=== PATIENT | male | born 1955 | race Caucasian/White ===

== ENCOUNTER → 2017-03-01 | Outpatient (CLI) | payer BC ==
[2017-03-01 12:10] LABS: BUN/CREATININE RATIO 18 (0-10)
== END ==
LOC: LAB 10:53
PROVIDERS: Internal Medicine
DX: E11.9 Type 2 diabetes mellitus without complications (principal); E55.9 Vitamin D deficiency, unspecified; E78.5 Hyperlipidemia, unspecified; I10 Essential (primary) hypertension
CPT/HCPCS: 36415; 80048; 80061; 80076; 82607; 83036; 84443; G0103

== ENCOUNTER 2020-11-29 16:01 | Emergency (ER) | payer BC, OTHER ==
[~2020-11-29 16:01] MED LIST: CLARITIN10 MG PO; ECOTRIN81 MG PO; ELIQUIS 5 MG TAB5 MG PO; ELIQUIS5 MG PO; GLUCOTROL XL 22.5 MG PO; JARDIANCE25 MG PO; LEVAQUIN750 MG PO; LIPITOR TAB 1010 MG PO; LOPRESSOR 25 MG25 MG PO; MULTAQ400 MG PO; NORVASC 5 MG TAB5 MG PO; PRINIVIL10 MG PO; PROTONIX40 MG PO; RANITIDINE HCL300 MG PO; TRULICITY1.5 MG/0.5 SQ; TYLENOL WITH C1 EACH PO
[2020-11-29 19:43] LABS: HEMOGLOBIN 15.5 gm/dl (14.0-17.5); RED BLOOD COUNT 5.55 M/UL (4.20-5.50); WHITE BLOOD COUNT 4.1 K/UL (4.5-11.0)
[2020-11-29] MEDS ORDERED: VENTOLIN HFA 66.7 GM INH (21:30)
[2020-11-29] MEDS ORDERED: NASONEX SPRAY 117 GM (21:30)
== END 2020-11-29 21:45 | disposition home or self-care (01) ==
LOC: ER1 16:01
PROVIDERS: Physician Assistant
DX: U07.1 COVID-19 (principal); E11.9 Type 2 diabetes mellitus without complications; I10 Essential (primary) hypertension; Z95.0 Presence of cardiac pacemaker; Z79.01 Long term (current) use of anticoagulants
CPT/HCPCS: 71045; 80053; 85025; 93005; 99285; M0239

== ENCOUNTER 2021-03-29 14:33 | Emergency (ER) | payer BC, OTHER ==
[~2021-03-29 14:33] MED LIST changes: +NASONEX SPRAY 117 GM; +VENTOLIN HFA 66.7 GM INH
[2021-03-29 15:14] LABS: HEMOGLOBIN 16.3 gm/dl (14.0-17.5); RED BLOOD COUNT 5.81 M/UL (4.20-5.50); WHITE BLOOD COUNT 8.7 K/UL (4.5-11.0)
[2021-03-29 16:13] LABS: BUN/CREATININE RATIO 14 (0-10)
== END 2021-03-29 21:45 | disposition short-term general hospital (02) ==
LOC: ER1 14:33
PROVIDERS: Emergency Medicine
DX: K85.91 Acute pancreatitis with uninfected necrosis, unspecified (principal); R07.9 Chest pain, unspecified; R79.89 Other specified abnormal findings of blood chemistry; I48.91 Unspecified atrial fibrillation; I11.0 Hypertensive heart disease with heart failure; I50.9 Heart failure, unspecified; E11.9 Type 2 diabetes mellitus without complications; E78.5 Hyperlipidemia, unspecified; Z20.822 Contact with and (suspected) exposure to COVID-19; Z86.79 Personal history of other diseases of the circulatory system
CPT/HCPCS: 71045; 71260; 80053; 80061; 82550; 82553; 83605; 83690; 83874; 84484; 85025; 87040; 93005; 96374; 96375; 96376; 99285; C9113; J2270; J2405; J2543; Q9967; U0002

== ENCOUNTER 2021-04-05 08:59 | Emergency (ER) | payer BC, OTHER ==
[2021-04-05 10:00] LABS: RED BLOOD COUNT 4.92 M/UL (4.20-5.50); WHITE BLOOD COUNT 9.1 K/UL (4.5-11.0)
[2021-04-05 10:04] LABS: HEMOGLOBIN 13.9 gm/dl (14.0-17.5)
[2021-04-05 10:21] LABS: BUN/CREATININE RATIO 19 (0-10)
[2021-04-05] MEDS ORDERED: LASIX20 MG PO (11:34)
[2021-04-05] MEDS ORDERED: K-DUR TAB 20 M20 MEQ PO (11:52)
== END 2021-04-05 11:57 | disposition home or self-care (01) ==
LOC: ER1 08:59
PROVIDERS: Physician Assistant
DX: I50.9 Heart failure, unspecified (principal); I48.20 Chronic atrial fibrillation, unspecified; K85.90 Acute pancreatitis without necrosis or infection, unspecified; E11.9 Type 2 diabetes mellitus without complications; Z86.16 Personal history of COVID-19; Z79.01 Long term (current) use of anticoagulants; Z20.822 Contact with and (suspected) exposure to COVID-19
CPT/HCPCS: 0240U; 71045; 80053; 82550; 82553; 83874; 83880; 84484; 85025; 93005; 96374; 99285; J1940

== ENCOUNTER 2021-10-21 16:51 | Inpatient (IN) | payer BC, OTHER ==
[~2021-10-21] VITALS: Ht 182.9 cm; Wt 99.3 kg
[~2021-10-21 16:51] MED LIST changes: +K-DUR TAB 20 M20 MEQ PO; +LASIX20 MG PO
[2021-10-21 18:37] LABS: HEMOGLOBIN 15.8 gm/dl (14.0-17.5); RED BLOOD COUNT 5.57 M/UL (4.20-5.50)
[2021-10-21 19:03] LABS: BUN/CREATININE RATIO 21 (0-10)
[2021-10-21] MEDS ORDERED: ELIQUIS5 MG PO (22:19)
[2021-10-21] MEDS ORDERED: RABEPRAZOLE SOD20 MG PO (22:19)
[2021-10-21] MEDS ORDERED: GLIPIZIDE5 MG PO (22:20)
[2021-10-21] MEDS ORDERED: JARDIANCE25 MG PO (22:20)
[2021-10-21] MEDS ORDERED: GLIPIZIDE10 MG PO (22:20)
[2021-10-21] MEDS ORDERED: MULTAQ 400 MG400 MG PO (22:21)
[2021-10-21] MEDS ORDERED: NORVASC5 MG PO (22:21)
[2021-10-21] MEDS ORDERED: LISINOPRIL10 MG PO (22:22)
[2021-10-21] MEDS ORDERED: CLARITIN10 MG PO (22:22)
[2021-10-21] MEDS ORDERED: FAMOTIDINE20 MG PO (22:22)
[2021-10-21] MEDS ORDERED: URSODIOL300 MG PO (22:23)
[2021-10-22 10:13] LABS: HEMOGLOBIN 16.5 gm/dl (14.0-17.5); RED BLOOD COUNT 5.86 M/UL (4.20-5.50); WHITE BLOOD COUNT 15.4 K/UL (4.5-11.0)
[2021-10-22 10:42] LABS: BUN/CREATININE RATIO 22 (0-10)
[2021-10-23 04:57] LABS: HEMOGLOBIN 14.9 gm/dl (14.0-17.5); RED BLOOD COUNT 5.31 M/UL (4.20-5.50); WHITE BLOOD COUNT 17.1 K/UL (4.5-11.0)
[2021-10-23 05:19] LABS: BUN/CREATININE RATIO 21 (0-10)
--- NOTE | 2021-10-23 09:56 | NUR ---
SPOKE WITH DR. EWING. STATED PATIENT COULD BE DISCHARGED LOND HE IS ABLE TO TOLERATE PO FLAGYL 500 MG THIS AM. ALSO ORDERED RN TO STOP IV FLUIDS.
[2021-10-23] MEDS ORDERED: METRONIDAZOLE500 MG PO (10:01)
--- NOTE | 2021-10-23 12:10 | NUR ---
PATIENT NOTED TO BE TOLERATING LUNCH WELL. DENIES PAIN AND DISCOMFORT. REQUESTS TO FOLLOW THROUGH WITH DISCHARGE PER DR. EWING RN VERBALIZED UNDERSTANDING.
[2021-10-24] MEDS ORDERED: NORFLEX 100 MG100 MG PO (10:14)
[2021-10-24] MEDS ORDERED: ASPIRIN EC81 MG PO (22:19)
[2021-10-24] MEDS ORDERED: LIPITOR10 MG PO (22:20)
== END 2021-10-23 12:40 | disposition home or self-care (01) | DRG 444 ==
LOC: ER1 16:51 → CDU 20:29 → MED SURG 4 20:29
PROVIDERS: Physician Assistant; ADMIT Internal Medicine
DX: K80.00 Calculus of gallbladder with acute cholecystitis without obstruction (principal); K85.10 Biliary acute pancreatitis without necrosis or infection; E11.9 Type 2 diabetes mellitus without complications; Z20.822 Contact with and (suspected) exposure to COVID-19; E86.0 Dehydration; N28.9 Disorder of kidney and ureter, unspecified; I25.10 Atherosclerotic heart disease of native coronary artery without angina pectoris; I48.91 Unspecified atrial fibrillation; I49.5 Sick sinus syndrome; Z79.01 Long term (current) use of anticoagulants; Z95.1 Presence of aortocoronary bypass graft; Z95.5 Presence of coronary angioplasty implant and graft; Z88.8 Allergy status to other drugs, medicaments and biological substances; Z79.82 Long term (current) use of aspirin; Z95.0 Presence of cardiac pacemaker; Z95.2 Presence of prosthetic heart valve; Z82.49 Family history of ischemic heart disease and other diseases of the circulatory system; Z79.4 Long term (current) use of insulin
CPT/HCPCS: 36415; 71045; 80048; 80053; 82150; 82247; 82248; 82550; 82553; 82962; 83690; 83874; 84484; 85025; 85379; 93005; 96374; 99285; C9113; G0378; J1335; J1885; Q9967; U0002

== ENCOUNTER 2021-10-23 18:45 | Inpatient (IN) | payer BC, OTHER ==
[~2021-10-23] VITALS: Ht 182.9 cm; Wt 99.3 kg
[~2021-10-23 18:45] MED LIST changes: +FAMOTIDINE20 MG PO; +GLIPIZIDE10 MG PO; +GLIPIZIDE5 MG PO; +LISINOPRIL10 MG PO; +METRONIDAZOLE500 MG PO; +MULTAQ 400 MG400 MG PO; +NORVASC5 MG PO; +RABEPRAZOLE SOD20 MG PO; +URSODIOL300 MG PO
[2021-10-23 19:30] LABS: HEMOGLOBIN 15.3 gm/dl (14.0-17.5); RED BLOOD COUNT 5.4 M/UL (4.20-5.50)
[2021-10-23 19:32] LABS: WHITE BLOOD COUNT 10.4 K/UL (4.5-11.0)
[2021-10-23 19:51] LABS: BUN/CREATININE RATIO 20 (0-10)
[2021-10-24 05:11] LABS: HEMOGLOBIN 13.8 gm/dl (14.0-17.5); RED BLOOD COUNT 5.14 M/UL (4.20-5.50); WHITE BLOOD COUNT 8.9 K/UL (4.5-11.0)
[2021-10-24 05:32] LABS: BUN/CREATININE RATIO 21 (0-10)
[2021-10-24] MEDS ORDERED: NORFLEX 100 MG100 MG PO (10:14)
[2021-10-24] MEDS ORDERED: ASPIRIN EC81 MG PO (22:19)
[2021-10-24] MEDS ORDERED: LIPITOR10 MG PO (22:20)
[2021-10-25 03:31] LABS: HEMOGLOBIN 13.2 gm/dl (14.0-17.5); RED BLOOD COUNT 4.67 M/UL (4.20-5.50)
[2021-10-25 03:47] LABS: WHITE BLOOD COUNT 12.2 K/UL (4.5-11.0)
[2021-10-25] MEDS ORDERED: ROXICODONE TAB 55 MG PO (08:47)
[2021-10-26 04:19] LABS: HEMOGLOBIN 11.6 gm/dl (14.0-17.5)
[2021-10-26 04:22] LABS: RED BLOOD COUNT 4.19 M/UL (4.20-5.50); WHITE BLOOD COUNT 8.8 K/UL (4.5-11.0)
[2021-10-26 05:10] LABS: BUN/CREATININE RATIO 27 (0-10)
[2021-10-27 04:16] LABS: HEMOGLOBIN 11.2 gm/dl (14.0-17.5); RED BLOOD COUNT 4.04 M/UL (4.20-5.50); WHITE BLOOD COUNT 7.5 K/UL (4.5-11.0)
[2021-10-27 04:35] LABS: BUN/CREATININE RATIO 28 (0-10)
--- NOTE | 2021-10-27 20:05 | NUR ---
PTS CONCERNED OF PTS BILATERAL FEET SWELLING. NOTIFIED DR VEGA. ELSY PHILLIPS APPLIED.
[2021-10-29 03:16] LABS: HEMOGLOBIN 11.6 gm/dl (14.0-17.5); RED BLOOD COUNT 4.22 M/UL (4.20-5.50); WHITE BLOOD COUNT 6.6 K/UL (4.5-11.0)
[2021-10-29 03:35] LABS: BUN/CREATININE RATIO 19 (0-10)
== END 2021-10-29 10:19 | disposition home or self-care (01) | DRG 854 ==
LOC: ER1 18:45 → CDU 22:45 → PROG CARE 22:45 → CCU 22:45 → PROG CARE 10-24 16:08
PROVIDERS: Internal Medicine; Physician Assistant; ADMIT Internal Medicine
PROC: 0FT44ZZ Resection of Gallbladder, Percutaneous Endoscopic Approach (ICD-10-PCS; principal; 2021-10-25)
DX: A41.9 Sepsis, unspecified organism (principal); K80.00 Calculus of gallbladder with acute cholecystitis without obstruction; E87.2 Acidosis; I50.32 Chronic diastolic (congestive) heart failure; Z20.822 Contact with and (suspected) exposure to COVID-19; E11.9 Type 2 diabetes mellitus without complications; Z96.0 Presence of urogenital implants; I25.10 Atherosclerotic heart disease of native coronary artery without angina pectoris; I11.0 Hypertensive heart disease with heart failure; I48.91 Unspecified atrial fibrillation; E78.5 Hyperlipidemia, unspecified; K82.A1 Gangrene of gallbladder in cholecystitis; Z95.0 Presence of cardiac pacemaker; Z95.1 Presence of aortocoronary bypass graft; Z79.01 Long term (current) use of anticoagulants; Z82.49 Family history of ischemic heart disease and other diseases of the circulatory system; Z87.891 Personal history of nicotine dependence; Z83.3 Family history of diabetes mellitus
CPT/HCPCS: 36415; 71045; 80048; 80053; 80076; 81001; 82150; 82962; 83605; 83690; 85025; 85027; 87040; 87086; 93005; 94760; 99285; C1729; C9113; J1100; J1885; J2250; J2405; J2543; J2704; J2710; J3010; J7030; J7120; Q9967; U0002